=== PATIENT | male | born 1980 | race Caucasian/White ===

== ENCOUNTER 2018-07-10 07:09 | Emergency (ER) | payer BC, OTHER ==
[2018-07-10 07:18] VITALS: BP 146/90
--- NOTE | 2018-07-10 07:56 | UC ---
Dental HPI - HPI Summary HPI Summary: Patient with diffusely poor dentition comes in with several days of increasing swelling to the right side of his face and worsening pain in his right upper teeth. States he poked at his right upper premolar a few days ago and a piece fell off. He is currently looking into establishing with a dentist. He does have dental insurance. States he has been holding off on getting dental care while his takes care of her teeth first. No fever. No airway obstruction or difficulty swallowing. - History of Current Complaint Chief Complaint: UCDentalProblem Stated Complaint: TOOTHACHE Time Seen by Provider: 07/10/18 07:22 Hx Obtained From: Patient Onset/Duration: Gradual Onset, Lasting Days, Still Present Severity: Moderate Pain Intensity: 9 Pain Scale Used: 0-10 Numeric Aggravating Factor(s): Heat, Cold, Chewing Alleviating Factor(s): Nothing - Allergies/Home Medications Allergies/Adverse Reactions: Allergies Allergy/AdvReac Type Severity Reaction Status Date / Time brompheniramine Allergy Hives Verified 07/10/18 07:19 [From Dimetapp (brompheniramine-PPA)] guaifenesin [From Robitussin] Allergy Hives Verified 07/10/18 07:19 phenylpropanolamine Allergy Hives Verified 07/10/18 07:19 [From Dimetapp (brompheniramine-PPA)] Home Medications: Home Medications Acetaminophen 650 mg PO 07/10/18 [History] Ibuprofen 400 mg PO 07/10/18 [History] PMH/Surg Hx/FS Hx/Imm Hx Respiratory History: Asthma - Surgical History Surgical History: None - Family History Known Family History: Positive: Non-Contributory - Social History Alcohol Use: Rare Substance Use Type: None Smoking Status (MU): Heavy Every Day Tobacco Smoker Type: Cigarettes Amount Used/How Often: 1 PPD Review of Systems All Other Systems Reviewed And Are Negative: Yes Constitutional: Positive: Negative ENT: Positive: Dental Pain Respiratory: Positive: Negative Cardiovascular: Positive: Negative Gastrointestinal: Positive: Negative Physical Exam Triage Information Reviewed: Yes Appearance: Well-Nourished, Pain Distress - MILD Vital Signs: Initial Vital Signs Temp 97.4 F 07/10/18 07:13 Pulse 71 07/10/18 07:13 Resp 18 07/10/18 07:13 BP 146/90 07/10/18 07:13 Pulse Ox 100 07/10/18 07:13 Vital Signs Reviewed: Yes Eyes: Positive: Conjunctiva Clear ENT: Positive: Hearing grossly normal, Pharynx normal Dental: Positive: Gross Decay/Caries @, Dental Fracture @ - MULTIPLE, Other: - LEFT FACIAL SWELLING Neck exam: Normal Neck: Positive: Supple Respiratory: Positive: No respiratory distress, No accessory muscle use Cardiovascular: Positive: Pulses Normal Abdomen Description: Positive: Soft Musculoskeletal: Positive: No Edema Neurological: Positive: Alert Psychological: Positive: Age Appropriate Behavior Skin: Negative: Rashes Dental Complaint Course/Dx - Course Course [facility] Treatment: [facility] Reference #: [id number]. PT WILL CALL A DENTIST TODAY. - Differential Dx/Diagnosis Provider Diagnosis: Infected tooth Discharge - Sign-Out/Discharge Documenting (check all that apply): Patient Departure All imaging exams completed and their final reports reviewed: No Studies - Discharge Plan Condition: Stable Disposition: HOME Prescriptions: Amoxicillin/Clavulanate TAB* [Augmentin TAB 875*] 875 mg PO BID #20 tab Chlorhexidine MW 0.12% 473ML* [Peridex Mouth Wash 0.12%*] 15 ml SWISH SPIT BID # 1 bottle HYDROcodone/ACETAMIN 5-325 MG* [[place] 5-325 TAB*] 1 tab PO Q6H PRN #20 tab MDD 4 PRN Reason: Pain Patient Education Materials: Dental Abscess (ED), Toothache (ED) Forms: *Gen. Provider Communication Referrals: Nicko Thomas MD [Primary Care Provider] - Additional Instructions: TAKE THE ANTIBIOTICS FOR THE FULL COURSE. RINSE YOUR MOUTH WITH WATER AFTER EATING OR DRINKING ANYTHING. ANTISEPTIC MOUTH RINSE TWICE DAILY. OTC MEDS NEEDED FOR DISCOMFORT. HYDROCODONE FOR BREAKTHROUGH PAIN. FOLLOW-UP WITH A DENTIST JASON. IBUPROFEN MAX DOSE: 600MG (3 TABS) EVERY 6 HRS OR 800MG (4 TABS) EVERY 8 HRS OR NAPROXEN MAX DOSE: 440MG (2 TABS) EVERY 12 HRS TYLENOL MAX DOSE: 1000MG (2 EXTRA STRENGTH TABS) EVERY 8 HRS OR 650MG (2 REGULAR TABS) EVERY 6 HRS LIST OF LOW COST DENTISTS PROVIDED. I WOULD ALSO RECOMMEND YOU CALL THE PRIVATE DENTISTS TO SEE IF THEY TAKE YOUR INSURANCE. HERE ARE A FEW LOCAL OFFICES. DENTISTS [facility]. DDS Dentist Office [address], [place] [address] Rohan Rick, DDS [address], [place] [address] Alexis Rivas D.D.S. [address], [place] [address] Opens at 8am - Billing Disposition and Condition Condition: STABLE Disposition: Home
== END 2018-07-10 08:11 | disposition home or self-care (01) ==
LOC: UCEAST 07:09
DX: K04.7 Periapical abscess without sinus (principal); J45.909 Unspecified asthma, uncomplicated; F17.210 Nicotine dependence, cigarettes, uncomplicated; Z88.8 Allergy status to other drugs, medicaments and biological substances
CPT/HCPCS: 99202; G0463